=== PATIENT | female | born 1960 | race Caucasian/White ===

== ENCOUNTER 2017-02-17 12:12 | Day surgery (SDC) | payer OTHER ==
--- NOTE | ~2017-02-17 | EGD ---
EGD REPORT [facility] [address] [address] NAME: DEE HEATH : [birth year] STATUS : REG [facility]#: [id number] AGE: 56 ADM/REG DATE : 02/17/17 MR#: [id number] REPORT SERV DATE: 02/17/17 DICTATED BY: RENETTA GARCIA DATE: 02/17/17 REPORT STATUS : Draft [facility]: [facility] DATE: 02/17/17 Endoscopy Center Patient Name: Dee Heath Date of : 1960 Attending MD: RENETTA GARCIA MD Procedure Date No Time: 02/17/2017 Procedure: Upper GI endoscopy Indications: Dysphagia, Heartburn Medicines: Monitored Anesthesia Care Complications: No immediate complications. Procedure: Pre-Anesthesia Assessment: - ASA Grade Assessment: III - A patient with severe systemic disease. After obtaining informed consent, the endoscope was passed under direct vision. Throughout the procedure, the patient's blood pressure, pulse, and oxygen saturations were monitored continuously. The GIF H190 [id number] was introduced through the mouth, and advanced to the second part of duodenum. The upper GI endoscopy was accomplished without difficulty. The patient tolerated the procedure well. Findings: No endoscopic abnormality was evident in the esophagus to explain the patient's complaint of dysphagia. It was decided, however, to proceed with dilation of the entire esophagus. A guidewire was placed and the scope was withdrawn. Dilation was performed with a Savary dilator with no resistance at 45 Fr. Estimated blood loss: none. One non-bleeding cratered gastric ulcer with no stigmata of bleeding was found in the prepyloric region of the stomach. The lesion was 8 mm in largest dimension. Biopsies were taken with a cold forceps for histology. The cardia and gastric fundus were normal on retroflexion. The duodenal bulb and 2nd part of the duodenum were normal. Impression: - No endoscopic esophageal abnormality to explain patient's dysphagia. Esophagus dilated. Dilated. - Gastric ulcer with clean base. Biopsied. - Normal duodenal bulb and 2nd part of the duodenum. Recommendation: - Patient has a contact number available for emergencies. The signs and symptoms of potential delayed complications were discussed with the patient. Return to normal activities tomorrow. Written discharge instructions were provided to the patient. - Regular diet. EGD REPORT [place] [id number] [facility] [place]. [address] NAME: DEE HEATH : [birth year] STATUS : REG [facility] PAT#: [id number] AGE: 56 ADM/REG DATE : 02/17/17 MR#: [id number] REPORT SERV DATE: 02/17/17 DICTATED BY: RENETTA GARCIA DATE: 02/17/17 REPORT STATUS : Draft TRANSCRIBED BY: [facility] DATE: 02/17/17 - Follow an antireflux regimen. - Use Prilosec (omeprazole) 40 mg PO daily. - Discontinue Zantac (ranitidine). - No aspirin, ibuprofen, naproxen, or other non-steroidal anti-inflammatory drugs. - Repeat the upper endoscopy in 2 months to check healing. Procedure Code(s): --- Professional --- 88986, Esophagogastroduodenoscopy, flexible, transoral; with insertion of guide wire followed by passage of dilator(s) through esophagus over guide wire 78276, Esophagogastroduodenoscopy, flexible, transoral; with biopsy, single or multiple Diagnosis Code(s): --- Professional --- R13.10, Dysphagia, unspecified K25.9, Gastric ulcer, unspecified as acute or chronic, without hemorrhage or perforation R12, Heartburn CPT copyright 2013 [employer]. All rights reserved. The codes documented in this report are preliminary and upon health information coder review may be revised to meet current compliance requirements. RENETTA GARCIA MD 02/17/2017 2:42 PM This report has been signed electronically. Number of Addenda: 0 Note Initiated On: 02/17/2017 2:24 PM Scope Withdrawal Time 0 hours 0 minutes 0 seconds [address] [id number]
--- NOTE | ~2017-02-17 | EGD ---
EGD REPORT [facility] [address] [address] NAME: DEE HEATH : [birth year] STATUS : REG [facility]#: [id number] AGE: 56 ADM/REG DATE : 02/17/17 MR#: [id number] REPORT SERV DATE: 02/17/17 DICTATED BY: RENETTA GARCIA DATE: 02/17/17 REPORT STATUS : Draft TRANSCRIBED BY: [facility] DATE: 02/17/17 Endoscopy Center Patient Name: Dee Heath Date of : 1960 Attending MD: RENETTA GARCIA MD Procedure Date No Time: 02/17/2017 Procedure: Colonoscopy Indications: Screening for colorectal malignant neoplasm Medicines: Monitored Anesthesia Care Complications: No immediate complications. Procedure: Pre-Anesthesia Assessment: - ASA Grade Assessment: III - A patient with severe systemic disease. After I obtained informed consent, the scope was passed under direct vision. Throughout the procedure, the patient's blood pressure, pulse, and oxygen saturations were monitored continuously. The PCF H190L [id number] was introduced through the anus and advanced to the terminal ileum, with identification of the appendiceal orifice and IC valve. The colonoscopy was performed without difficulty. The patient tolerated the procedure well. The quality of the bowel preparation was adequate. Findings: The digital rectal exam was normal. Pertinent negatives include no palpable rectal lesions. A sessile polyp was found in the cecum. The polyp was 4 mm in size. The polyp was removed with a cold biopsy forceps. Resection and retrieval were complete. A sessile polyp was found in the transverse colon. The polyp was 7 mm in size. The polyp was removed with a cold biopsy forceps. Resection and retrieval were complete. A sessile polyp was found in the sigmoid colon. The polyp was 6 mm in size. The polyp was removed with a cold biopsy forceps. Resection and retrieval were complete. Hemorrhoids were found during retroflexion and were moderate. The terminal ileum appeared normal. Impression: - One 4 mm polyp in the cecum. Resected and retrieved. - One 7 mm polyp in the transverse colon. Resected and retrieved. - One 6 mm polyp in the sigmoid colon. Resected and retrieved. - Hemorrhoids. EGD REPORT [address] [place]. [address] NAME: DEE HEATH : [birth year] [place]US : [place] [facility] [place]#: [id number] AGE: 56 ADM/REG DATE : 02/17/17 MR#: [id number] REPORT SERV DATE: 02/17/17 DICTATED BY: RENETTA GARCIA DATE: 02/17/17 REPORT STATUS : Draft TRANSCRIBED BY: [employer] DATE: 02/17/17 Recommendation: - Patient has a contact number available for emergencies. The signs and symptoms of potential delayed complications were discussed with the patient. Return to normal activities tomorrow. Written discharge instructions were provided to the patient. - Regular diet. - Continue present medications. - Repeat colonoscopy for surveillance based on pathology results. - Return to GI clinic PRN. Procedure Code(s): --- Professional --- 60078, Colonoscopy, flexible, proximal to splenic flexure; with biopsy, single or multiple Diagnosis Code(s): --- Professional --- D12.5, Benign neoplasm of sigmoid colon D12.3, Benign neoplasm of transverse colon D12.0, Benign neoplasm of cecum K64.9, Unspecified hemorrhoids Z12.11, Encounter for screening for malignant neoplasm of colon CPT copyright 2013 [employer]. All rights reserved. The codes documented in this report are preliminary and upon brim raiser review may be revised to meet current compliance requirements. RENETTA GARCIA MD 02/17/2017 3:06 PM This report has been signed electronically. Number of Addenda: 0 Note Initiated On: 02/17/2017 2:22 PM [address] [address]
[~2017-02-17 12:12] MED LIST: ASAB PO; COREG6 PO; COZAAR100 MG PO; DIOVAN HC2 PO; DSS PO; DUONEB INH; FISH-EPA1000 MG PO; I-PRIN200 MG PO; KLOR-CON M2020 MEQ PO; LIOR10 PO; NABUMETONE750 MG PO; NEUR300 PO; NORV25 PO; OS500+D PO; PERCOCET 7.5/321 TAB PO; RELA5 PO; SALAGEN5 M1 PO; SKELAXIN8 PO; SPIRIVA INH; TOPROL XL200 MG PO; TRAZ100 PO; VENTOLIN HFA INH; ZANTAC PO; ZOL100 PO; [UNRECOGNIZED DRUG - OTHER] PO
[2017-04-16] MEDS ORDERED: SKELAXIN8 PO (16:39)
[2017-04-16] MEDS ORDERED: BUSPAR15 M1 PO (16:41)
[2017-04-16] MEDS ORDERED: PRILOSEC40 MG PO (16:42)
[2017-04-16] MEDS ORDERED: TOPXL50 PO (16:43)
[2017-04-16] MEDS ORDERED: MULTIVIT/MIN PO (16:51)
[2017-04-16] MEDS ORDERED: VITAMIN D31000 UNIT PO (16:56)
[2017-04-16] MEDS ORDERED: OS500+D PO (16:56)
[2017-04-16] MEDS ORDERED: PCET PO (16:57)
== END 2017-02-17 23:59 | disposition home or self-care (01) ==
LOC: DMU 12:12
PROVIDERS: Internal Medicine Gastroenterology
PROC: 0D758ZZ Dilation of Esophagus, Via Natural or Artificial Opening Endoscopic (ICD-10-PCS; 2017-02-17)
PROC: 0DB68ZX Excision of Stomach, Via Natural or Artificial Opening Endoscopic, Diagnostic (ICD-10-PCS; 2017-02-17)
PROC: 0DBL8ZX Excision of Transverse Colon, Via Natural or Artificial Opening Endoscopic, Diagnostic (ICD-10-PCS; principal; 2017-02-17 13:30)
PROC: 0DBH8ZX Excision of Cecum, Via Natural or Artificial Opening Endoscopic, Diagnostic (ICD-10-PCS; 2017-02-17 13:30)
PROC: 0DBN8ZX Excision of Sigmoid Colon, Via Natural or Artificial Opening Endoscopic, Diagnostic (ICD-10-PCS; 2017-02-17 13:30)
DX: Z12.11 Encounter for screening for malignant neoplasm of colon (principal); D12.5 Benign neoplasm of sigmoid colon; D12.0 Benign neoplasm of cecum; K63.5 Polyp of colon; K64.9 Unspecified hemorrhoids; K25.9 Gastric ulcer, unspecified as acute or chronic, without hemorrhage or perforation; I10 Essential (primary) hypertension; J44.9 Chronic obstructive pulmonary disease, unspecified; F17.210 Nicotine dependence, cigarettes, uncomplicated; G89.29 Other chronic pain; M54.9 Dorsalgia, unspecified; K21.9 Gastro-esophageal reflux disease without esophagitis; K44.9 Diaphragmatic hernia without obstruction or gangrene; M50.30 Other cervical disc degeneration, unspecified cervical region
CPT/HCPCS: 88305; 88342

== ENCOUNTER 2017-04-21 09:53 | Day surgery (SDC) | payer OTHER ==
--- NOTE | ~2017-04-21 | EGD ---
EGD REPORT [facility] [address] [address] NAME: JUD HEATH : [birth year] STATUS : REG [facility]#: [id number] AGE: 56 ADM/REG DATE : 04/21/17 MR#: [id number] REPORT SERV DATE: 04/21/17 DICTATED BY: RENETTA GARCIA DATE: 04/21/17 REPORT STATUS : Draft [facility]ANSCRIBED [facility]: [facility] DATE: 04/21/17 Endoscopy Center Patient Name: Jud Heath Date of : 1960 Attending MD: RENETTA GARCIA MD Procedure Date No Time: 04/21/2017 Procedure: Upper GI endoscopy Indications: Dysphagia, Follow-up of acute gastric ulcer Referring MD: Bernadette Toney Medicines: Monitored Anesthesia Care Complications: No immediate complications. Procedure: Pre-Anesthesia Assessment: - ASA Grade Assessment: III - A patient with severe systemic disease. After obtaining informed consent, the endoscope was passed under direct vision. Throughout the procedure, the patient's blood pressure, pulse, and oxygen saturations were monitored continuously. The GIF H190 [id number] was introduced through the mouth, and advanced to the second part of duodenum. The upper GI endoscopy was accomplished without difficulty. The patient tolerated the procedure well. Findings: Localized mild erythema was found at the gastroesophageal junction. Biopsies were taken with a cold forceps for histology. The duodenal bulb and 2nd part of the duodenum were normal. The cardia and gastric fundus were normal on retroflexion. One non-bleeding cratered gastric ulcer with no stigmata of bleeding was found in the gastric antrum. The lesion was 6 mm in largest dimension. Biopsies were taken with a cold forceps for histology. No endoscopic abnormality was evident in the esophagus to explain the patient's complaint of dysphagia. It was decided, however, to proceed with dilation of the entire esophagus. A guidewire was placed and the scope was withdrawn. Dilation was performed with a Savary dilator with mild resistance at 48 Fr. Estimated blood loss: none. Impression: - Erythema at the gastroesophageal junction. Biopsied. - Normal duodenal bulb and 2nd part of the duodenum. - Gastric ulcer with clean base. Biopsied. Recommendation: - Patient has a contact number available for emergencies. The signs and symptoms of potential delayed complications were discussed with the patient. Return to normal activities tomorrow. Written discharge EGD REPORT [place] [id number] [facility] [place]. [address] NAME: JUD HEATH : [birth year] STATUS : REG [facility] PAT#: [id number] AGE: 56 ADM/REG DATE : 04/21/17 MR#: [id number] REPORT SERV DATE: 04/21/17 DICTATED BY: RENETTA GARCIA DATE: 04/21/17 REPORT STATUS : Draft TRANSCRIBED BY: [employer] [facility] DATE: 04/21/17 instructions were provided to the patient. - Regular diet. - Continue present medications. - Await pathology results. - Use Prilosec (omeprazole) 40 mg PO BID. - No aspirin, ibuprofen, naproxen, or other non-steroidal anti-inflammatory drugs. Procedure Code(s): --- Professional --- 40391, Esophagogastroduodenoscopy, flexible, transoral; with biopsy, single or multiple Diagnosis Code(s): --- Professional --- K22.9, Disease of esophagus, unspecified K25.9, Gastric ulcer, unspecified as acute or chronic, without hemorrhage or perforation R13.10, Dysphagia, unspecified K25.3, Acute gastric ulcer without hemorrhage or perforation CPT copyright 2013 [employer]. All rights reserved. The codes documented in this report are preliminary and upon solid surface fabricator review may be revised to meet current compliance requirements. RENETTA GARCIA MD 04/21/2017 11:58 AM This report has been signed electronically. Number of Addenda: 0 Note Initiated On: 04/21/2017 11:23 AM Scope Withdrawal Time 0 hours 0 minutes 0 seconds [address] [address]
[~2017-04-21 09:53] MED LIST changes: +BUSPAR15 M1 PO; +MULTIVIT/MIN PO; +PCET PO; +PRILOSEC40 MG PO; +TOPXL50 PO; +VITAMIN D31000 UNIT PO
== END 2017-04-21 23:59 | disposition home or self-care (01) ==
LOC: DMU 09:53
PROVIDERS: Internal Medicine Gastroenterology
PROC: 0D758ZZ Dilation of Esophagus, Via Natural or Artificial Opening Endoscopic (ICD-10-PCS; 2017-04-21)
PROC: 0DB48ZX Excision of Esophagogastric Junction, Via Natural or Artificial Opening Endoscopic, Diagnostic (ICD-10-PCS; principal; 2017-04-21 11:00)
PROC: 0DB68ZX Excision of Stomach, Via Natural or Artificial Opening Endoscopic, Diagnostic (ICD-10-PCS; 2017-04-21 11:00)
DX: K25.3 Acute gastric ulcer without hemorrhage or perforation (principal); I10 Essential (primary) hypertension; J44.9 Chronic obstructive pulmonary disease, unspecified; M54.9 Dorsalgia, unspecified; K21.9 Gastro-esophageal reflux disease without esophagitis; K44.9 Diaphragmatic hernia without obstruction or gangrene; F43.10 Post-traumatic stress disorder, unspecified; F32.9 Major depressive disorder, single episode, unspecified; F41.9 Anxiety disorder, unspecified; M79.7 Fibromyalgia; M19.90 Unspecified osteoarthritis, unspecified site; F17.210 Nicotine dependence, cigarettes, uncomplicated; H40.9 Unspecified glaucoma; Z96.1 Presence of intraocular lens; Z98.41 Cataract extraction status, right eye; Z98.42 Cataract extraction status, left eye; Z90.89 Acquired absence of other organs; Z98.1 Arthrodesis status; Z98.51 Tubal ligation status; Z79.82 Long term (current) use of aspirin; Z79.899 Other long term (current) drug therapy; Z98.890 Other specified postprocedural states
CPT/HCPCS: 88305